=== PATIENT | male | born 1990 | race Caucasian/White ===

== ENCOUNTER 2018-06-10 14:40 | Emergency (ER) ==
[2018-06-10 14:53] VITALS: BMI 21.4
--- NOTE | 2018-06-10 16:13 | ED.PDOC ---
General ED Provider: Dr. CHARY DUNBAR Chief Complaint: Psychiatric Complaint Stated Complaint: WANTS TO END HIS LIFE. HAD A PLAN TO TAKE [place] INTEND[place] TO "BLOW MY BRAINS OUT". APPARENTLY ATTEMPTING TO COORDINATE WITH HIS PARTNER TO ACCOMPANY HIM AND COMMIT SUICIDE WELL. PARTNER CONVINCED HIM NOT TO DO THIS AND TO COME TO ER FOR HELP. HAS NOTHING TO LIVE FOR Time Seen by Physician: 15:45 Mode of Arrival: Walk-In Information Source: Patient Exam Limitations: No limitations Nursing and Triage Documentation Reviewed and Agree: Yes Does patient meet sepsis criteria?: No System Inflammatory Response Syndrome: Not Applicable Sepsis Protocol: For patient's 13 years and over: Temp is 96.8 and below OR 101 and greater Pulse >90 BPM Resp >20/minute Acutely Altered Mental Status Are patient's symptoms suggestive of a new infection, such as: -Pneumonia -Skin, Soft Tissue -Endocarditis -UTI -Bone, Joint Infection -Implantable Device -Acute Abdominal Infection -Wound Infection -Meningitis -Blood Stream Catheter Infection -Unknown Psychological Complaint Exam - Psychiatric Complaint/Exam Patient Complains Of: Present: Suicidal thoughts Onset/Duration: 1 WEEK Symptoms Are: Still present Timing: Constant Episodes Lasting: Hours Initial Severity: Severe Current Severity: Severe Character: Present: Depressed, Fearful, Anxious, Frustrated Aggravating: Reports: Recent stress, Drug use, Medication noncompliance Associated Signs And Symptoms: Reports: Confused, Hallucinating, Paranoid behavior, Sleep disturbance, Appetite change Related History: Reports: Suicidal thoughts, Suicidal plan Completed Suicide Risk Factors: Male, Patient Accompanied By: Friend Patient In Custody Of Police: No Social Withdrawal Present: Yes Social Isolation Present: Yes Prior Suicide Attempt: Yes Injury From Prior Suicide Attempt: No Related Surgical History: Reports: None Mood: Present: Depressed, Angry, Paranoid, Hallucinating, Manic, Anxious, Hearing voices Appearance: Present: Clean Thought Process: Present: Illogical, Flight of ideas Insight: Present: Limited Memory: Impaired Judgement: Impaired Danger To Others: Yes Patient Medically Stable For: Psych evaluation Differential Diagnoses: Anxiety, Bipolar Disorder, Suicidal Ideation Review of Systems - Review Of Systems Constitutional: Reports: No symptoms Eyes: Reports: No symptoms Ears, Nose, Mouth, Throat: Reports: No symptoms Respiratory: Reports: No symptoms Cardiac: Reports: No symptoms GI: Reports: No symptoms : Reports: No symptoms Musculoskeletal: Reports: No symptoms Skin: Reports: No symptoms Neurological: Reports: No symptoms Endocrine: Reports: No symptoms Hematologic/Lymphatic: Reports: No symptoms All Other Systems: Reviewed and Negative Past Medical History - Past Medical History Endocrine: Reports: Unknown Cardiovascular: Reports: Unknown Respiratory: Reports: Unknown Hematological: Reports: Unknown Gastrointestinal: Reports: Unknown Genitourinary: Reports: Unknown Neuro/Psych: Reports: Anxiety, Depression, Bipolar Disorder Musculoskeletal: Reports: Unknown Cancer: Reports: Unknown - Surgical History General Surgical History: Reports: Unknown - Family History Family History: Reports: Unknown - Social History Smoking Status: Current every day smoker, Light tobacco smoker Hx Substance Use: Yes (meth) Alcohol Screening: None Physical Exam - Physical Exam Appearance: Well-appearing, No pain distress Ill-appearing: Mild Pain Distress: None Eyes: FRANCIE ENT: Ears normal, Nose normal Respiratory: Airway patent, Breath sounds clear, Breath sounds equal, Respirations nonlabored Cardiovascular: RRR, Pulses normal, No rub, No murmur GI/: Soft, Nontender, No masses, Bowel sounds normal, No Organomegaly Musculoskeletal: Normal strength, ROM intact, No edema, No calf tenderness Skin: Warm, Dry, Normal color Neurological: Sensation intact, Motor intact, Reflexes intact, Cranial nerves intact, Alert, Oriented Psychiatric: Mood appropriate (INAPPROPRIATE/FLATTENED AFFECT), Depressed 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 Rate: Normal Rhythm: Sinus Ectopy: None Physician Notification - Case Discussed Physician Notified: Dr Mayo-Discussed case and current plan with attempted placement Time of Notification: 18:50 Critical Care Note - Critical Care Note Total Time (mins): 60 Course - Course Hematology/Chemistry: 06/10/18 16:30 06/10/18 16:30 Orders, Labs, Meds: Lab Review 06/10/18 06/10/18 06/10/18 15:25 15:25 16:30 WBC 5.05 RBC 4.89 Hgb 13.9 L Hct 41.3 L MCV 84.5 MCH 28.4 MCHC 33.7 RDW Coeff of Alley 13.1 Plt Count 228 Immature Gran % (Auto) 0.4 Neut % (Auto) 67.5 Lymph % (Auto) 22.4 [place] % (Auto) 8.5 Eos % (Auto) 1.0 Baso % (Auto) 0.2 Immature Gran # (Auto) 0.0 Neut # (Auto) 3.4 Lymph # (Auto) 1.1 [place] # (Auto) 0.4 Eos # (Auto) 0.1 Baso # (Auto) 0.0 Sodium Potassium Chloride Carbon Dioxide Anion Gap BUN Creatinine Estimated GFR (MDRD) BUN/Creatinine Ratio Glucose Calcium Total Bilirubin AST ALT Alkaline Phosphatase Total Protein Albumin Globulin Albumin/Globulin Ratio Urine Color Yellow Urine Clarity Cloudy Urine pH 7.5 Ur Specific [place] 1.020 Urine Protein Negative Urine Glucose (UA) Negative Urine Ketones Negative Urine Blood Trace-intact Urine Nitrite Negative Urine Bilirubin Negative Urine Urobilinogen 1.0 Ur Leukocyte Esterase 1+ Urine Microscopic WBC 10-20 Ur Squamous Epith Cells Not present Amorphous Sediment 2+ Urine Bacteria 3+ Salicylate Level mg/dL Urine Opiates Screen Negative Ur Oxycodone Screen Negative Urine Methadone Screen Negative Ur Propoxyphene Screen Negative Acetaminophen Ur Barbiturates Screen Negative U Tricyclic Antidepress Negative Ur Phencyclidine Scrn Negative Ur Amphetamine Screen Positive U Methamphetamines Scrn Negative U Benzodiazepines Scrn Negative Urine Cocaine Screen Negative U Cannabinoids Screen Negative Plasma/Serum Alcohol Influ A Molecular Assay Influ B Molecular Assay 06/10/18 06/10/18 16:30 20:27 WBC RBC Hgb Hct MCV MCH MCHC RDW Coeff of [place]ley Plt Count Immature Gran % (Auto) Neut % (Auto) Lymph % (Auto) [place] % (Auto) Eos % (Auto) Baso % (Auto) Immature Gran # (Auto) Neut # (Auto) Lymph # (Auto) [place] # (Auto) Eos # (Auto) Baso # (Auto) Sodium 138.8 Potassium 4.63 Chloride 102.3 Carbon Dioxide 31.6 H Anion Gap 9.53 BUN 13.1 Creatinine 0.80 Estimated GFR (MDRD) 115.00 BUN/Creatinine Ratio 16.37 Glucose 125.6 H Calcium 9.23 Total Bilirubin 0.57 AST 24.9 ALT 14.0 Alkaline Phosphatase 70.5 Total Protein 7.31 Albumin 4.26 Globulin 3.05 Albumin/Globulin Ratio 1.39 Urine Color Urine Clarity Urine pH Ur Specific [place] Urine Protein Urine Glucose (UA) Urine Ketones Urine Blood Urine Nitrite Urine Bilirubin Urine Urobilinogen Ur Leukocyte Esterase Urine Microscopic WBC Ur Squamous Epith Cells Amorphous Sediment Urine Bacteria Salicylate Level mg/dL < 1.00 Urine Opiates Screen Ur Oxycodone Screen Urine Methadone Screen Ur Propoxyphene Screen Acetaminophen < 10.0 L Ur Barbiturates Screen U Tricyclic Antidepress Ur Phencyclidine Scrn Ur Amphetamine Screen U Methamphetamines Scrn U Benzodiazepines Scrn Urine Cocaine Screen U Cannabinoids Screen Plasma/Serum Alcohol < 10.0 Influ A Molecular Assay Negative by naat Influ B Molecular Assay Negative by naat Orders Category Date Time Status EKG-(ED ONLY) Stat CARDIO 06/10/18 16:14 Completed ED 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 OPERATOR APPLIED ONCE EMERGENCY 06/10/18 16:14 Active ACETAMINOPHEN Stat LAB 06/10/18 16:30 Completed BLOOD ALCOHOL Stat LAB 06/10/18 16:30 Completed CBC W/ AUTO DIFF Stat LAB 06/10/18 16:30 Completed COMPREHENSIVE METABOLIC PANEL Stat LAB 06/10/18 16:30 Completed DRUG SCREEN, URINE, RAPID Stat LAB 06/10/18 15:25 Completed FLU A & B MOLECULAR [FLU A/B MOLECULAR] Stat LAB 06/10/18 20:27 Completed SALICYLATE Stat LAB 06/10/18 16:30 Completed URINALYSIS C & S IF INDICATED Stat LAB 06/10/18 15:25 Completed URINE CULTURE Stat LAB 06/10/18 15:25 Completed Vital Signs: Temp Pulse Resp BP Pulse Ox 06/11/18 12:55 98.5 F 80 20 138/88 100 06/11/18 07:14 98.2 F 74 16 107/59 L 100 06/11/18 06:30 98.6 F 87 16 137/79 100 06/11/18 02:30 98.3 F 86 18 139/83 99 06/10/18 14:41 99.6 F 94 H 20 145/89 H 98 Departure - Departure Time of Disposition: 18:45 (Is Medially cleared for transfer and admission to Psych Facility) Disposition: TSF OTHER Discharge Problem: Bipolar disorder with depression, Suicidal ideations Instructions: Help Prevent Suicide (ED), Suicide Prevention (ED) Condition: Stable Pt referred to PMD for follow-up: No (SPOKE WITH MENTAL HEATLH AND RECOMMEND IN PATIENT TRANSFER) IPMP verified?: No Additional Instructions: Is Medially cleared for transfer and admission to Psych Facility Home Medications: Ambulatory Orders 1 [No Reported Medications] 06/10/18 Disposition Discussed With: Patient (Is Medially cleared for transfer and admission to Psych Facility) Additional Information: Mental health worker in department actively working to assist in Transfer to Mental Health Facility
[2018-06-11 12:56] VITALS: BP 138/88; TEMP 98.5
== END 2018-06-11 15:30 | disposition short-term general hospital (02) ==
LOC: ED 14:40
DX: F31.9 Bipolar disorder, unspecified (principal); F32.9 Major depressive disorder, single episode, unspecified; R45.851 Suicidal ideations; F17.210 Nicotine dependence, cigarettes, uncomplicated
CPT/HCPCS: 36415; 80053; 80306; 80307; 81001; 85025; 87086; 87186; 87502; 93005; 93010; 99285